=== PATIENT | female | born 1970 | race Two or more races ===

== ENCOUNTER 2020-11-04 06:30 | Day surgery (SDC) | payer OTHER ==
[~2020-11-04 06:30] MED LIST: HORIZANT300 MG PO
== END 2020-11-04 13:15 | disposition home or self-care (01) ==
LOC: CIR.AMB 06:30
PROVIDERS: ATTEND Orthopaedic Surgery Hand Surgery
DX: G56.02 Carpal tunnel syndrome, left upper limb (principal); Z20.822 Contact with and (suspected) exposure to COVID-19